=== PATIENT | female | born 1960 | race Caucasian/White ===

== ENCOUNTER → 2021-07-06 | Outpatient (CLI) | payer OTHER ==
[~2021-07-06] MED LIST: DEXL60CA3 PO; ESTR1GEL TD; HYDR12.54 PO; LEVO150T11 PO; LOSA25TA41 PO; [UNRECOGNIZED DRUG - OTHER] PO; norethindrone PO
== END | disposition home or self-care (01) ==
LOC: RAH 09:01
PROVIDERS: ATTEND Family Medicine
DX: K76.0 Fatty (change of) liver, not elsewhere classified (principal); R16.0 Hepatomegaly, not elsewhere classified; Z90.49 Acquired absence of other specified parts of digestive tract
CPT/HCPCS: 76700